=== PATIENT | male | born 1970 | race Caucasian/White ===

== ENCOUNTER 2020-02-17 09:15 | Outpatient (RCR) | payer BC, OTHER, SELFPAY ==
[2020-01-07 13:03] VITALS: BMI 45.6
== END 2020-03-23 12:01 | disposition home or self-care (01) ==
LOC: ANHDMC 09:15
PROVIDERS: PCP Family Medicine; Visit Provider Family Medicine
DX: E11.65 Type 2 diabetes mellitus with hyperglycemia (principal); Z71.3 Dietary counseling and surveillance; Z71.89 Other specified counseling
CPT/HCPCS: 97802; G0108

== ENCOUNTER 2022-11-01 18:49 | Emergency (ER) | payer BC, OTHER, SELFPAY ==
[2022-11-01 18:58] VITALS: BP 142/86; PULSE 101; RESP 16; TEMP 37.1; O2SAT 97
--- NOTE | 2022-11-01 19:01 | ED.EXTPRO ---
HPI - Extremity Problem General Chief complaint: Extremity Problem,Nontraumatic Stated complaint: Ingrown toe nail right foot Time Seen by Provider: 11/01/22 19:02 Source: patient, RN notes reviewed and old records reviewed Mode of arrival: ambulatory Limitations: no limitations History of Present Illness HPI Narrative: 52-year-old male presents to the [facility] with an ingrown toenail to the right great toe that he noticed starting on Monday. Area is red, draining to the medial aspect of the right great toe. Patient states that his primary care retired, did not feel comfortable with 1 he tried recently has not been on any of his medications to include his diabetes medications. Onset (ago): day(s) (2) Related Data Allergies Allergy/AdvReac Type Severity Reaction Status Date / Time strawberry Allergy Mild RASH Verified 12/25/19 08:33 watermelon Allergy Mild RASH Verified 12/25/19 08:33 Review of Systems Review of Systems: All systems reviewed & are unremarkable except as noted in HPI and below Constitutional: Constitutional: Reports no additional constitutional complaints Eyes: Eyes: Reports no additional eye complaints ENT: Reports system reviewed and no additional complaints, except as documented Cardiovascular: Cardiovascular: Reports no additional cardiovascular complaints, Denies chest pain and Denies dyspnea Respiratory: Respiratory: Reports no additional respiratory complaints, Denies chest congestion, Denies cough and Denies dyspnea Gastrointestinal: Gastrointestinal: Reports no additional gastrointestinal complaints, Denies abdominal pain, Denies nausea and Denies vomiting Musculoskeletal: Musculoskeletal: Reports as per HPI Integumentary/Breasts: Skin/Breast: Reports as per HPI Neurologic: Reports system reviewed and no additional complaints, except as documented Psychiatric: Psychiatric: Reports no additional psychiatric complaints Allergic/Immunologic: Allergic/Immunologic: Reports no additional allergic/immunologic complaints [facility] Past Medical History Medical History Dyslipidemia Erectile dysfunction History of depression Osteoarthritis Plantar fasciitis both feet - 2008 Sinus problem Type 2 diabetes mellitus without complications Umbilical hernia Surgical History Surgical History History of surgery on arm 2008 - surgery of left bicep History of vasectomy 2006 [place] teeth extracted Family History Family History Father Heart disease Mother Hypertension Grandparent Cancer Hypertension Social History Social History Smoking packs per day: 1.5 Smoking cigarettes per day: 30.0 Years smoked: 30 Smoking pack-years: 45.00 Smoking status: Current every day smoker Tobacco type: cigarettes Spiritual care concerns: No Comments At the time of my signature, I reviewed and agree with the nursing past medical, surgical, social, and family history. There is no relevant family history pertinent to the patient complaint. Exam Const: General: cooperative, healthy appearing, comfortable, no acute distress, well developed, alert and well nourished Nutritional Appearance: well nourished and obese Orientation/consciousness: patient oriented x3 Limitations: no limitations HENMT: Head: normal to inspection Ears: hearing grossly normal bilaterally and external ears normal Face/Nose/Sinus: Normal external nose present, Normal nares present, Normal nasal mucous membranes and turbinates present and normal facial exam Face and sinus: normal facial exam Mouth: Yes lip normal Eyes: General: appearance normal, both eyes and all related structures Alignment and Position: alignment normal Periorbital: periorbital findings normal Pupils: Equal, round and reactive pupils pre
[2022-11-01 19:08] LABS: Glucose Point of Care 347 mg/dl (65-105)
== END 2022-11-01 19:40 | disposition home or self-care (01) ==
PROVIDERS: Emergency Provider Nurse Practitioner
DX: L03.031 Cellulitis of right toe (principal); L60.0 Ingrowing nail; E78.5 Hyperlipidemia, unspecified; M19.90 Unspecified osteoarthritis, unspecified site; E11.9 Type 2 diabetes mellitus without complications; F17.210 Nicotine dependence, cigarettes, uncomplicated
CPT/HCPCS: 82948; 99213; G0463